=== PATIENT | female | born 1940 | race Caucasian/White ===

== ENCOUNTER 2019-11-27 12:55 | Observation (INO) ==
[2019-11-27 13:16] LABS: Basophils % 0.2 % (0.0-0.8); Hematocrit 26.5 VOL% (35.7-47.0); Hemoglobin 7.8 GM/DL (12.0-16.0); Immature Granulocytes % 3.9 %; Immature Granulocytes Absolute 0.19 #; Lymphocytes # 1.4 10*3/uL (1.4-4.0); Lymphocytes % 28.8 % (21.3-54.2); Mean Corpuscular HGB Conc 29.4 GM/DL (32-36); Mean Corpuscular Volume 96.4 FL (87-102); Mean Platelet Volume 11.1 FL (9.6-12.0); Monocytes % 6.6 % (1.7-12.7); NRBC # 0.15 10*3/uL; Neutrophils % 60.5 % (38.7-73.9); Platelet Count 295 T/CUMM (130-400); Red Blood Count 2.75 MC/CUMM (3.8-5.5); Red Cell Distribution Width 18.4 % (9.3-17.3); White Blood Count 4.8 T/CUMM (4-12)
[2019-11-27 13:44] LABS: Alanine Aminotransferase 38 U/L (13-56); Alkaline Phosphatase 93 U/L (45-117); Aspartate Amino Transferase 26 U/L (0-37); Bilirubin,Total < 0.39 MG/DL (0.2-1.0); Blood Urea Nitrogen 17 MG/DL (7-18); Calcium 8.3 MG/DL (8.5-10.1); Glucose 126 MG/DL (74-106); Osmolality,Calculated 282.4 MOS/KG (273-304); Total Protein 7.3 G/DL (6.4-8.3)
[2019-11-27 13:45] LABS: Estimated Glom Filtration Rate 0 ML/MIN
[2019-11-27] MEDS ORDERED: SODIUM CHLORIDE 0.9% 1,000 ML IV PRN (14:00)
[2019-11-27 14:49] LABS: % Iron Saturation 19.6 % (18-50); Ferritin 59.6 ng/ml (8-252)
[2019-11-27] MEDS ORDERED: ONDANSETRON 4 MG/2 ML VIAL IV PRN (14:49)
[2019-11-27] MEDS ORDERED: MORPHINE 4 MG/1 ML VIAL IV PRN (14:49)
[2019-11-27] MEDS ORDERED: DEXTROSE 50% 25 GM/50 ML VIAL IV PRN (14:49)
[2019-11-27] MEDS ORDERED: ACETAMINOPHEN 325 MG TABLET PO PRN (14:49)
[2019-11-27] MEDS ORDERED: DOCUSATE SODIUM 100 MG CAPSULE PO PRN (14:49)
[2019-11-27] MEDS ORDERED: GLUCAGON 1 MG VIAL IM PRN (14:49)
[2019-11-27 14:54] LABS: Folate > 24.0 NG/ML (5.4-24.0); Vitamin B12 207 PG/ML (211-911)
[2019-11-27 20:22] LABS: Hematocrit 27.4 VOL% (35.7-47.0); Hemoglobin 7.9 GM/DL (12.0-16.0)
[2019-11-27] MEDS: METOPROLOL TARTRATE 50 MG TABLET PO SCH (21:10)
[2019-11-27] MEDS: DILTIAZEM 60 MG TABLET PO SCH (21:10)
[2019-11-27] MEDS: INSULIN LISPRO 100 UNIT/ML SUBCUT SCH ×2 (21:12→21:17)
[2019-11-27] MEDS: AMITRIPTYLINE 75 MG TABLET PO SCH (22:46)
[2019-11-28 06:16] LABS: Calcium 8.8 MG/DL (8.5-10.1); Osmolality,Calculated 279.4 MOS/KG (273-304)
[2019-11-28 06:25] LABS: Risk Ratio 3.71; Thyroid Stimulating Hormone 16.9 uIU/ml (0.358-3.74); VLDL CHOLESTEROL 20.4 MG/DL
[2019-11-28 07:23] LABS: Hematocrit 23.9 VOL% (35.7-47.0); Immature Granulocytes % 3.5 %; Immature Granulocytes Absolute 0.14 #; Lymphocytes # 1.8 10*3/uL (1.4-4.0); Lymphocytes % 44.6 % (21.3-54.2); Mean Corpuscular HGB Conc 29.3 GM/DL (32-36); Mean Platelet Volume 11.9 FL (9.6-12.0); Monocytes % 12.9 % (1.7-12.7); NRBC # 0.05 10*3/uL; Platelet Count 241 T/CUMM (130-400); Red Blood Count 2.49 MC/CUMM (3.8-5.5); Red Cell Distribution Width 18.8 % (9.3-17.3)
[2019-11-28 07:45] LABS: Band Neutrophils 2 % (0-10); Hypochromasia 2+; Lymphocytes 43 % (20-55); Nucleated Red Blood Cells 3 (0-5); Platelet Estimate Adequate; Segmented Neutrophils 45 % (50-85); Total Cells Counted 100
[2019-11-28 07:46] LABS: Microcytosis 1+
[2019-11-28] MEDS: INSULIN LISPRO 100 UNIT/ML SUBCUT SCH ×4 (08:16→22:13)
[2019-11-28 09:47] LABS: Troponin I < 0.015 NG/ML (0.00-0.045)
[2019-11-28] MEDS: FOLIC ACID 1 MG TABLET PO SCH (10:04)
[2019-11-28] MEDS: PANTOPRAZOLE 40 MG TABLET PO SCH (10:04)
[2019-11-28] MEDS: SIMVASTATIN 20 MG TABLET PO SCH (10:04)
[2019-11-28] MEDS: MULTIVITAMIN (CENTRUM) TABLET PO SCH (10:05)
[2019-11-28] MEDS: LEVOTHYROXINE 50 MCG TABLET PO SCH (10:05)
[2019-11-28] MEDS: ALBUTEROL 2 MG TABLET PO SCH (10:05)
[2019-11-28] MEDS: ASPIRIN EC 81 MG TABLET PO SCH (10:05)
[2019-11-28] MEDS: predniSONE 5 MG TABLET PO SCH (10:05)
[2019-11-28] MEDS: DILTIAZEM 60 MG TABLET PO SCH ×2 (10:05→22:13)
[2019-11-28] MEDS: CALCIUM (CARBONATE) 500 MG TABLET PO SCH (10:06)
[2019-11-28] MEDS: METOPROLOL TARTRATE 50 MG TABLET PO SCH ×2 (10:06→22:13)
[2019-11-28] MEDS: CYANOCOBALAMIN 500 MCG TABLET PO SCH (10:06)
[2019-11-28] MEDS: FERROUS SULFATE 325 MG TABLET PO SCH (10:07)
[2019-11-28] MEDS: DOCUSATE SODIUM 100 MG CAPSULE PO SCH ×3 (10:07→22:13)
[2019-11-28] MEDS ORDERED: NITROGLYCERIN SL 0.4 MG TABLET SL PRN (11:27)
[2019-11-28] MEDS: AMITRIPTYLINE 75 MG TABLET PO SCH (22:13)
[2019-11-29 05:43] LABS: Basophils % 0.3 % (0.0-0.8); Hemoglobin 11.7 GM/DL (12.0-16.0); Immature Granulocytes % 5.1 %; Lymphocytes # 1.9 10*3/uL (1.4-4.0); Lymphocytes % 47.1 % (21.3-54.2); Mean Corpuscular HGB Conc 31.6 GM/DL (32-36); Mean Corpuscular Volume 95.1 FL (87-102); Mean Platelet Volume 11.5 FL (9.6-12.0); NRBC # 0.07 10*3/uL; Neutrophils % 30.5 % (38.7-73.9); Platelet Count 230 T/CUMM (130-400); Red Blood Count 3.89 MC/CUMM (3.8-5.5); Red Cell Distribution Width 17.2 % (9.3-17.3); White Blood Count 3.9 T/CUMM (4-12)
[2019-11-29 06:07] LABS: Calcium 9.1 MG/DL (8.5-10.1)
[2019-11-29 06:57] LABS: Anisocytosis 2+; Atypical Lymphocytes Few; Band Neutrophils 4 % (0-10); Lymphocytes 49 % (20-55); Macrocytosis Slight; Nucleated Red Blood Cells 4 (0-5); Platelet Estimate Normal; Segmented Neutrophils 34 % (50-85); Total Cells Counted 100
[2019-11-29] MEDS ORDERED: METHOTREXATE 2.5 MG TABLET PO SCH (08:00)
[2019-11-29 08:21] VITALS: BP 127/93
[2019-11-29] MEDS: INSULIN LISPRO 100 UNIT/ML SUBCUT SCH (09:27)
[2019-11-29] MEDS: POLYETHYLENE GLYCOL POWDER 17 GM PACK PO SCH ×2 (09:28→09:31)
[2019-11-29] MEDS: FOLIC ACID 1 MG TABLET PO SCH (09:29)
[2019-11-29] MEDS: DOCUSATE SODIUM 100 MG CAPSULE PO SCH (09:29)
[2019-11-29] MEDS: MULTIVITAMIN (CENTRUM) TABLET PO SCH (09:29)
[2019-11-29] MEDS: ASPIRIN EC 81 MG TABLET PO SCH (09:29)
[2019-11-29] MEDS: FERROUS SULFATE 325 MG TABLET PO SCH (09:29)
[2019-11-29] MEDS: DILTIAZEM 60 MG TABLET PO SCH (09:29)
[2019-11-29] MEDS: CALCIUM (CARBONATE) 500 MG TABLET PO SCH (09:30)
[2019-11-29] MEDS: METOPROLOL TARTRATE 50 MG TABLET PO SCH (09:30)
[2019-11-29] MEDS: PANTOPRAZOLE 40 MG TABLET PO SCH (09:30)
[2019-11-29] MEDS: predniSONE 5 MG TABLET PO SCH (09:30)
[2019-11-29] MEDS: CYANOCOBALAMIN 500 MCG TABLET PO SCH (09:31)
[2019-11-29] MEDS: SIMVASTATIN 20 MG TABLET PO SCH (09:31)
[2019-11-29] MEDS: LEVOTHYROXINE 50 MCG TABLET PO SCH (09:31)
[2019-11-29] MEDS: ALBUTEROL 2 MG TABLET PO SCH (09:36)
== END 2019-11-29 10:55 | disposition home or self-care (01) ==
LOC: N.ED 12:55 → N.EDINP 12:55 → N.TELEN 19:58
PROVIDERS: ADMIT Internal Medicine; ATTEND Internal Medicine

== ENCOUNTER 2020-09-03 16:48 | Inpatient (IN) ==
[2020-09-03] MEDS ORDERED: KETOROLAC 30 MG/1 ML VIAL IV STA (18:40)
[2020-09-03 20:16] LABS: Bilirubin,Urine Negative (Negative); Blood, Urine Negative (Negative); Glucose,Urine (UA) Negative (Negative); Ketones,Urine Negative (Negative); Mucus,Urine Occasional /LPF (Occasional); Nitrite,Urine Negative (Negative); Protein,Urine Negative; RBC,Urine <1 /HPF (0-4); Urine Appearance CLEAR (Clear); Urine Color Yellow (Yellow); Urine Specific Gravity 1.009 (1.001-1.035); Urine Urobilinogen < 2.0 EU/DL (0.2-1.0)
[2020-09-03 20:28] LABS: Basophils % 0.1 % (0.0-0.8); Hematocrit 30.9 VOL% (35.7-47.0); Hemoglobin 9.3 GM/DL (12.0-16.0); Immature Granulocytes % 6.9 %; Immature Granulocytes Absolute 0.74 #; Lymphocytes # 1.2 10*3/uL (1.4-4.0); Lymphocytes % 11.3 % (21.3-54.2); Mean Corpuscular HGB Conc 30.1 GM/DL (32-36); Mean Corpuscular Volume 91.2 FL (87-102); Mean Platelet Volume 11.4 FL (9.6-12.0); Monocytes % 9.8 % (1.7-12.7); Neutrophils % 71.9 % (38.7-73.9); Platelet Count 278 T/CUMM (130-400); Red Blood Count 3.39 MC/CUMM (3.8-5.5); Red Cell Distribution Width 18.6 % (9.3-17.3); White Blood Count 10.8 T/CUMM (4-12)
[2020-09-03 20:37] LABS: PT Patient Result 11.3 SECS (10.5-12.0)
[2020-09-03] MEDS ORDERED: NICOTINE 21 MG/24 HR PATCH TRANSDERM PRN (20:47)
[2020-09-03] MEDS ORDERED: ACETAMINOPHEN 325 MG TABLET PO PRN (20:47)
[2020-09-03] MEDS ORDERED: ONDANSETRON 4 MG/2 ML VIAL IV PRN (20:47)
[2020-09-03] MEDS ORDERED: hydrALAZINE 20 MG/1 ML VIAL IV PRN (20:47)
[2020-09-03] MEDS ORDERED: DEXTROSE 50% 25 GM/50 ML VIAL IV PRN (20:47)
[2020-09-03] MEDS ORDERED: GLUCAGON 1 MG VIAL IM PRN (20:47)
[2020-09-03 20:52] LABS: Band Neutrophils 2 % (0-10); Lymphocytes 12 % (20-55); Segmented Neutrophils 80 % (50-85); Total Cells Counted 100
[2020-09-03 20:53] LABS: Hypochromasia 1+; Microcytosis 1+; Platelet Estimate Increased; Polychromasia Slight
[2020-09-03 20:59] LABS: Albumin 3.8 G/DL (3.4-5.0); Bilirubin,Total 0.7 MG/DL (0.20-1.00); Calcium 8.7 MG/DL (8.5-10.1); Osmolality,Calculated 273.8 MOS/KG (273-304); Potassium 4.4 MMOL/L (3.5-5.1); Total Protein 7.8 G/DL (6.4-8.2)
[2020-09-03] MEDS: MORPHINE 2 MG/1 ML SYRINGE IV PRN (22:37)
[2020-09-03] MEDS ORDERED: AMITRIPTYLINE 75 MG TABLET PO SCH (23:19)
[2020-09-03] MEDS: AMITRIPTYLINE 50 MG TABLET PO SCH (23:46)
[2020-09-03] MEDS: sulfaSALAzine 500 MG TABLET PO SCH (23:46)
[2020-09-04] MEDS: MORPHINE 2 MG/1 ML SYRINGE IV PRN (05:01)
[2020-09-04] MEDS ORDERED: CLINDAMYCIN INJ 900 MG/50 ML PREMIX IV ONE (06:34)
[2020-09-04] MEDS ORDERED: LIDOCAINE 2% 5 ML VIAL ONE (06:53)
[2020-09-04] MEDS ORDERED: PHENYLEPHRINE 1 MG/10 ML SYRINGE IV ONE ×3 (06:53→09:16)
[2020-09-04] MEDS ORDERED: TRANEXAMIC ACID 1,000 MG/10 ML VIAL ONE (06:53)
[2020-09-04] MEDS ORDERED: ROCURONIUM 50 MG/5 ML VIAL IV ONE (06:53)
[2020-09-04] MEDS ORDERED: SEVOFLURANE 1 UNIT/15 MINUTE INH ONE (06:53)
[2020-09-04] MEDS ORDERED: DEXMEDETOMIDINE 200 MCG/2 ML VIAL ONE (06:53)
[2020-09-04] MEDS ORDERED: ETOMIDATE 40 MG/20 ML VIAL IV ONE (06:53)
[2020-09-04] MEDS ORDERED: fentaNYL 100 MCG/2 ML VIAL ONE (06:54)
[2020-09-04] MEDS ORDERED: LIDOCAINE 1% 5 ML VIAL ONE (07:02)
[2020-09-04] MEDS ORDERED: ROPIVACAINE 0.5% 30 ML VIAL ONE (07:02)
[2020-09-04] MEDS ORDERED: DEXAMETHASONE 4 MG/1 ML VIAL ONE (07:02)
[2020-09-04] MEDS ORDERED: BACITRACIN OINT 0.9 GM PACK TOP ONE (09:03)
[2020-09-04] MEDS ORDERED: ACETAMINOPHEN INJ 1,000 MG/100 ML VIAL IV ONE (09:13)
[2020-09-04] MEDS ORDERED: SUGAMMADEX 200 MG/2 ML VIAL IV ONE (09:13)
[2020-09-04] MEDS ORDERED: ALBUTEROL 2 MG TABLET PO PRN (09:20)
[2020-09-04] MEDS ORDERED: MAGNESIUM HYDROXIDE SUSP 30 ML UDCUP PO PRN (09:23)
[2020-09-04] MEDS ORDERED: ALBUMIN 5% 12.5 GM/250 ML VIAL IV ONE ×2 (09:50→09:52)
[2020-09-04] MEDS ORDERED: PHENYLEPHRINE DRIP 40 MG/250 ML PREMIX IV ONE (09:56)
[2020-09-04] MEDS: LACTATED RINGERS 1,000 ML IV SCH ×2 (10:05→16:25)
[2020-09-04] MEDS ORDERED: PHENYLEPHRINE DRIP 40 MG/250 ML PREMIX IV PRN (10:22)
[2020-09-04] MEDS: sulfaSALAzine 500 MG TABLET PO SCH ×2 (13:24→20:51)
[2020-09-04] MEDS: predniSONE 5 MG TABLET PO SCH (13:25)
[2020-09-04] MEDS: METOPROLOL TARTRATE 50 MG TABLET PO SCH (13:25)
[2020-09-04] MEDS: FERROUS SULFATE 325 MG TABLET PO SCH (13:25)
[2020-09-04] MEDS: SIMVASTATIN 20 MG TABLET PO SCH (13:26)
[2020-09-04] MEDS: CLINDAMYCIN INJ 900 MG/50 ML PREMIX IV SCH ×2 (15:39→22:40)
[2020-09-04] MEDS: DOCUSATE SODIUM 100 MG CAPSULE PO SCH (20:51)
[2020-09-04] MEDS: AMITRIPTYLINE 50 MG TABLET PO SCH ×2 (20:51)
[2020-09-05] MEDS: FONDAPARINUX 2.5 MG/0.5 ML SYRINGE SUBCUT SCH (03:05)
[2020-09-05] MEDS: LACTATED RINGERS 1,000 ML IV SCH (03:06)
[2020-09-05] MEDS: LEVOTHYROXINE 50 MCG TABLET PO SCH (06:02)
[2020-09-05 06:03] LABS: Basophils % 0.2 % (0.0-0.8); Hematocrit 20.9 VOL% (35.7-47.0); Immature Granulocytes Absolute 0.12 #; Lymphocytes # 1.3 10*3/uL (1.4-4.0); Lymphocytes % 21.9 % (21.3-54.2); Mean Corpuscular HGB Conc 30.1 GM/DL (32-36); Mean Corpuscular Volume 93.3 FL (87-102); Mean Platelet Volume 11.9 FL (9.6-12.0); Monocytes % 16.7 % (1.7-12.7); Neutrophils % 59.2 % (38.7-73.9); Platelet Count 193 T/CUMM (130-400); Red Blood Count 2.24 MC/CUMM (3.8-5.5); Red Cell Distribution Width 18.6 % (9.3-17.3)
[2020-09-05 06:06] LABS: Hemoglobin 6.3 GM/DL (12.0-16.0)
[2020-09-05 06:21] LABS: Calcium 7.4 MG/DL (8.5-10.1); Potassium 3.9 MMOL/L (3.5-5.1)
[2020-09-05 06:38] LABS: Hypochromasia 1+; Lymphocytes 21 % (20-55); Microcytosis 1+; Platelet Estimate Adequate; Segmented Neutrophils 68 % (50-85); Total Cells Counted 100
[2020-09-05] MEDS ORDERED: SODIUM CHLORIDE 0.9% 1,000 ML IV PRN (08:03)
[2020-09-05] MEDS: predniSONE 5 MG TABLET PO SCH (10:44)
[2020-09-05] MEDS: GABAPENTIN 100 MG CAPSULE PO SCH (10:44)
[2020-09-05] MEDS: MULTIVITAMIN (CENTRUM) TABLET PO SCH (10:45)
[2020-09-05] MEDS: sulfaSALAzine 500 MG TABLET PO SCH ×2 (10:45→21:05)
[2020-09-05] MEDS: FERROUS SULFATE 325 MG TABLET PO SCH ×2 (10:46→10:48)
[2020-09-05] MEDS: CYANOCOBALAMIN 500 MCG TABLET PO SCH ×2 (10:46→10:48)
[2020-09-05] MEDS: PANTOPRAZOLE 40 MG TABLET PO SCH (10:46)
[2020-09-05] MEDS: SIMVASTATIN 20 MG TABLET PO SCH ×2 (10:47→10:48)
[2020-09-05] MEDS: DOCUSATE SODIUM 100 MG CAPSULE PO SCH ×2 (10:47→21:04)
[2020-09-05] MEDS: CALCIUM (CARBONATE)/VITAMIN D 600 MG-400 UNIT TABLET PO SCH (10:49)
[2020-09-05] MEDS: METOPROLOL TARTRATE 50 MG TABLET PO SCH (10:51)
[2020-09-05] MEDS: MORPHINE 2 MG/1 ML SYRINGE IV PRN ×2 (10:59→15:11)
[2020-09-05] MEDS: metFORMIN 500 MG TABLET PO SCH ×3 (13:03→21:03)
[2020-09-05] MEDS: AMITRIPTYLINE 50 MG TABLET PO SCH ×2 (21:05→21:07)
[2020-09-06] MEDS: FONDAPARINUX 2.5 MG/0.5 ML SYRINGE SUBCUT SCH (02:52)
[2020-09-06 05:47] LABS: Basophils % 0.5 % (0.0-0.8); Hematocrit 39.3 VOL% (35.7-47.0); Immature Granulocytes % 5.3 %; Immature Granulocytes Absolute 0.44 #; Lymphocytes # 2.4 10*3/uL (1.4-4.0); Lymphocytes % 28.8 % (21.3-54.2); Mean Corpuscular HGB Conc 31.8 GM/DL (32-36); Mean Platelet Volume 11.3 FL (9.6-12.0); Monocytes % 15.9 % (1.7-12.7); Neutrophils % 49.5 % (38.7-73.9); Platelet Count 245 T/CUMM (130-400); Red Cell Distribution Width 17.7 % (9.3-17.3); White Blood Count 8.4 T/CUMM (4-12)
[2020-09-06 05:56] LABS: Hemoglobin 12.5 GM/DL (12.0-16.0); Red Blood Count 4.27 MC/CUMM (3.8-5.5)
[2020-09-06 06:15] LABS: Hypochromasia 1+; Lymphocytes 24 % (20-55); Microcytosis 1+; Platelet Estimate Adequate; Segmented Neutrophils 56 % (50-85); Total Cells Counted 100
[2020-09-06] MEDS: LEVOTHYROXINE 50 MCG TABLET PO SCH (07:34)
[2020-09-06] MEDS: GABAPENTIN 100 MG CAPSULE PO SCH (09:06)
[2020-09-06] MEDS: sulfaSALAzine 500 MG TABLET PO SCH ×2 (09:06→21:27)
[2020-09-06] MEDS: DOCUSATE SODIUM 100 MG CAPSULE PO SCH ×2 (09:06→21:27)
[2020-09-06] MEDS: metFORMIN 500 MG TABLET PO SCH ×4 (09:06→21:27)
[2020-09-06] MEDS: METOPROLOL TARTRATE 50 MG TABLET PO SCH (09:07)
[2020-09-06] MEDS: CYANOCOBALAMIN 500 MCG TABLET PO SCH (09:07)
[2020-09-06] MEDS: FERROUS SULFATE 325 MG TABLET PO SCH (09:07)
[2020-09-06] MEDS: MULTIVITAMIN (CENTRUM) TABLET PO SCH (09:07)
[2020-09-06] MEDS: PANTOPRAZOLE 40 MG TABLET PO SCH (09:07)
[2020-09-06] MEDS: predniSONE 5 MG TABLET PO SCH (09:07)
[2020-09-06] MEDS: CALCIUM (CARBONATE)/VITAMIN D 600 MG-400 UNIT TABLET PO SCH (09:07)
[2020-09-06] MEDS: SIMVASTATIN 20 MG TABLET PO SCH (09:07)
[2020-09-06] MEDS: MORPHINE 2 MG/1 ML SYRINGE IV PRN ×2 (15:17→21:32)
[2020-09-06] MEDS: AMITRIPTYLINE 50 MG TABLET PO SCH (21:27)
[2020-09-07] MEDS: AMITRIPTYLINE 50 MG TABLET PO SCH (00:30)
[2020-09-07] MEDS: MORPHINE 2 MG/1 ML SYRINGE IV PRN (01:30)
[2020-09-07 05:14] LABS: Basophils % 0.2 % (0.0-0.8); Hematocrit 37.6 VOL% (35.7-47.0); Hemoglobin 11.7 GM/DL (12.0-16.0); Immature Granulocytes % 4.7 %; Immature Granulocytes Absolute 0.31 #; Lymphocytes # 1.8 10*3/uL (1.4-4.0); Lymphocytes % 26.8 % (21.3-54.2); Mean Corpuscular HGB Conc 31.1 GM/DL (32-36); Mean Corpuscular Volume 91.7 FL (87-102); Mean Platelet Volume 11.5 FL (9.6-12.0); Monocytes % 18.3 % (1.7-12.7); Platelet Count 246 T/CUMM (130-400); Red Cell Distribution Width 17.7 % (9.3-17.3); White Blood Count 6.6 T/CUMM (4-12)
[2020-09-07] MEDS: LEVOTHYROXINE 50 MCG TABLET PO SCH (05:48)
[2020-09-07 05:56] LABS: Anisocytosis 1+; Band Neutrophils 3 % (0-10); Lymphocytes 27 % (20-55); Platelet Estimate Normal; Segmented Neutrophils 50 % (50-85); Total Cells Counted 100
[2020-09-07 06:06] LABS: Calcium 8.1 MG/DL (8.5-10.1); Osmolality,Calculated 277.5 MOS/KG (273-304); Potassium 4.2 MMOL/L (3.5-5.1)
[2020-09-07] MEDS ORDERED: metFORMIN 500 MG TABLET PO SCH (09:00)
[2020-09-07] MEDS: predniSONE 5 MG TABLET PO SCH (09:39)
[2020-09-07] MEDS: FONDAPARINUX 2.5 MG/0.5 ML SYRINGE SUBCUT SCH (09:39)
[2020-09-07] MEDS: CALCIUM (CARBONATE)/VITAMIN D 600 MG-400 UNIT TABLET PO SCH (09:39)
[2020-09-07] MEDS: MULTIVITAMIN (CENTRUM) TABLET PO SCH (09:39)
[2020-09-07] MEDS: sulfaSALAzine 500 MG TABLET PO SCH (09:40)
[2020-09-07] MEDS: CYANOCOBALAMIN 500 MCG TABLET PO SCH (09:40)
[2020-09-07] MEDS: DOCUSATE SODIUM 100 MG CAPSULE PO SCH (09:41)
[2020-09-07] MEDS: GABAPENTIN 100 MG CAPSULE PO SCH (09:41)
[2020-09-07] MEDS: PANTOPRAZOLE 40 MG TABLET PO SCH (09:41)
[2020-09-07] MEDS: METOPROLOL TARTRATE 50 MG TABLET PO SCH (09:41)
[2020-09-07] MEDS: FERROUS SULFATE 325 MG TABLET PO SCH (09:41)
[2020-09-07] MEDS: BISACODYL 5 MG TABLET PO ONE ×2 (11:24→11:50)
[2020-09-07] MEDS: LACTULOSE 20 GM/30 ML UDCUP PO ONE ×2 (11:24→11:50)
[2020-09-07 11:29] VITALS: BP 151/52
[2020-09-07] MEDS ORDERED: SIMVASTATIN 20 MG TABLET PO SCH (21:00)
[2020-09-11] MEDS ORDERED: METHOTREXATE 2.5 MG TABLET PO SCH (09:30)
== END 2020-09-07 16:02 | disposition swing bed (61) | DRG 481 ==
LOC: EDBD → EDUNIT# → N.ED 16:48 → N.EDINP 20:47 → SUATTDRO 20:47 → N.EDINP 22:22 → N.3E 22:25
PROVIDERS: ADMIT Internal Medicine; ATTEND Internal Medicine